=== PATIENT | female | born 1940 | race Caucasian/White ===

== ENCOUNTER → 2016-09-05 | Outpatient (CLI) | payer OTHER ==
[~2016-09-05] MED LIST: CALCIUM 600 +1 EAC5 PO; CORICIDIN HBP1 EAC1 PO; Ecotrin PO; LEVOTHYROXINE75 MCG PO; LISINOPRIL-HCT1 EAC3 PO; PRILOSEC OTC20 MG PO; SIMVASTATIN40 MG PO
== END | disposition home or self-care (01) ==
DX: M17.12 Unilateral primary osteoarthritis, left knee (principal); R26.2 Difficulty in walking, not elsewhere classified; M25.562 Pain in left knee; M25.662 Stiffness of left knee, not elsewhere classified; M62.81 Muscle weakness (generalized)
CPT/HCPCS: 97110 GP; 97150 GO; 97161 GP; 97165 GO; G8978 GP; G8979 GP; G8980 GP; G8990 GO; G8991 GO; G8992 GO

== ENCOUNTER 2016-10-02 22:09 | Inpatient (IN) | payer OTHER ==
[~2016-10-02] VITALS: Ht 170.2 cm; Wt 77.2 kg
[~2016-10-02 22:09] MED LIST changes: +ADVIL200 MG PO; +ASPIR 8181 M1 PO; +HYDROCHLOROTHIA25 MG PO; +LOMOTIL TABLET1 EACH PO; +NON-ASPIRIN PA500 M1 PO; +OMEPRAZOLE40 M1 PO; +PAIN RELIEF PM1 EACH PO; +THERA TEARS30 ML BOTH EYES; +ULTRAVATE15 G1 TP; +ZESTRIL40 MG PO
[2016-10-03 06:26] VITALS: BP 150/69
[2016-10-03 15:19] VITALS: BP 145/68
[2016-10-03 23:53] VITALS: BP 139/65
[2016-10-04 06:14] LABS: HEMATOCRIT 26.6 % (36.0-46.0); MCV 89.3 FL (83-99)
[2016-10-04 06:37] LABS: ANION GAP 8 MEQ/L (2-14); CHLORIDE 104 MEQ/L (99-109); GFR ESTIMATE (CALCULATED) > 59 mL/min/; GLUCOSE 103 mg/dL (70-99); SAMPLE HEMOLYSIS CHECK 0; SAMPLE ICTERIC CHECK 0; SAMPLE LIPEMIA CHECK 0; SODIUM 137 MEQ/L (136-147); UREA NITROGEN (BUN) 20 mg/dL (9-23)
[2016-10-04 07:00] VITALS: BP 152/67
[2016-10-04 15:00] VITALS: BP 162/72
[2016-10-04 23:37] VITALS: BP 157/68
[2016-10-05 05:35] LABS: HEMATOCRIT 28.4 % (36.0-46.0); MCV 87.9 FL (83-99)
[2016-10-05 07:58] VITALS: BP 111/53
[2016-10-05] MEDS ORDERED: ELIQUIS2.5 MG PO (11:33)
[2016-10-05] MEDS ORDERED: HYDROCODON-ACE1 EAC7 PO (11:33)
[2016-10-05 16:21] VITALS: BP 135/64
[2016-10-05 23:24] VITALS: BP 134/63
[2016-10-06 08:25] VITALS: BP 140/71
== END 2016-10-06 14:33 | DRG 470 ==
LOC: ENRESERV 22:09 → 2SOUTH 10-03 05:34 → 3EAST 10-03 05:34 → 2SOUTH 10-03 09:48 → ENRESERV 10-03 13:39 → 3EAST 10-03 14:36 → 2SOUTH 10-03 15:47 → 3EAST 10-06 14:33
PROVIDERS: Orthopaedic Surgery
PROC: 0SRD0J9 Replacement of Left Knee Joint with Synthetic Substitute, Cemented, Open Approach (ICD-10-PCS; principal; 2016-10-03)
DX: M17.12 Unilateral primary osteoarthritis, left knee (principal); C91.10 Chronic lymphocytic leukemia of B-cell type not having achieved remission; I10 Essential (primary) hypertension; G89.29 Other chronic pain; E03.9 Hypothyroidism, unspecified; K58.9 Irritable bowel syndrome, unspecified; E78.00 Pure hypercholesterolemia, unspecified; F41.9 Anxiety disorder, unspecified; K21.0 Gastro-esophageal reflux disease with esophagitis; Z86.11 Personal history of tuberculosis; Z90.710 Acquired absence of both cervix and uterus; Z88.0 Allergy status to penicillin; Z88.2 Allergy status to sulfonamides; Z79.82 Long term (current) use of aspirin; Z83.1 Family history of other infectious and parasitic diseases; Z85.828 Personal history of other malignant neoplasm of skin; Z90.49 Acquired absence of other specified parts of digestive tract; Z87.442 Personal history of urinary calculi
CPT/HCPCS: 71010; 80048; 85014; 85018; C1713; J0171; J1885; J2405; J2765; J3010; J7050; J7120; S0020